=== PATIENT | male | born 1990 | race Caucasian/White ===

== ENCOUNTER 2018-09-04 08:16 | Emergency (ER) | payer OTHER ==
[2018-09-04 08:34] VITALS: BP 133/67
--- NOTE | 2018-09-04 09:16 | ED Physician Documentation ---
PD HPI UPPER EXT INJURY - Stated complaint Stated Complaint: RT ARM PX - Chief complaint Chief Complaint: Ext Problem - History obtained from History obtained from: Patient - History of Present Illness Location: Right, Shoulder Type of injury: Fall Where injury occurred: Home Timing - onset: Last night Timing - duration: Hours (10) Timing - details: Gradual onset Pain level max: 8 Pain level now: 7 Improved by: Rest, Ice, Immobilization Worsened by: Moving, Palpating Associated symptoms: No: Weakness, Numbness, Tingling, Swelling Contributing factors: No: Anticoagulated Similar symptoms before: Has not had sx before Recently seen: Not recently seen - Additonal information Additional information: Patient with right shoulder pain after grabbing a stair railing last night when he was falling. Gradually worsened throughout the night. Increased pain this morning. Neurovascularly intact. Note that his initial oxygen saturation was 97, not 79 Review of Systems Musculoskeletal: denies: Neck pain, Back pain Neurologic: denies: Focal weakness, Numbness, Head injury PD PAST MEDICAL HISTORY - Past Medical History Past Medical History: No - Past Surgical History Past Surgical History: Yes - Present Medications Home Medications: Ambulatory Orders Medication Instructions Recorded Confirmed Cyclobenzaprine [Flexeril] 10 mg PO TID PRN #20 tablet 09/04/18 Ibuprofen [Motrin] 800 mg PO Q8H PRN #30 tablet 09/04/18 - Allergies Allergies/Adverse Reactions: Allergies Allergy/AdvReac Type Severity Reaction Status Date / Time No Known Drug Allergies Allergy Verified 09/04/18 08:27 - Social History Does the pt smoke?: Yes Smoking Status: Current some day smoker Does the pt drink ETOH?: Yes Does the pt have substance abuse?: No PD ED PE NORMAL - Vitals Vital signs reviewed: Yes - General General: Alert and oriented X 3, No acute distress - HEENT HEENT: Moist mucous membranes - Neck Neck: Supple, no meningeal sign - Cardiac Cardiac: RRR - Respiratory Respiratory: No respiratory distress, Clear bilaterally - Derm Derm: Warm and dry - Extremities Extremities: Other (TTP around the glenohumeral joint. NVI. including axillary nerve. Pain worse with AROM than PROM.) - Neuro Neuro: Alert and oriented X 3, No motor deficit, No sensory deficit Results - Vitals Vitals: Vital Signs - 24 hr 09/04/18 09/04/18 08:19 08:50 Temperature 36.5 C Heart Rate 77 Respiratory 15 Rate Blood Pressure 133/67 H O2 Saturation 79 L 97 Oxygen O2 Source Room air - Rads (name of study) R shoulder xray Radiology: Prelim report reviewed, EMP read contemporaneously, See rad report (Normal shoulder radiography. ) PD MEDICAL DECISION MAKING - ED course Complexity details: reviewed results, re-evaluated patient, considered differential, d/w patient ED course: 27-year-old male with right shoulder strain. Placed in a sling for comfort. Given Motrin and Flexeril for home. Patient counseled regarding signs and symptoms for which I believe and urgent re-evaluation would be necessary. Patient with good understanding of and agreement to plan and is comfortable going home at this time This document was made in part using voice recognition software. While efforts are made to proofread this document, sound alike and grammatical errors may occur. Departure - Departure Disposition: Home, Self Care Clinical Impression: Right shoulder strain Qualifiers: Encounter type: initial encounter Qualified Code(s): S46.911A - Strain of unspecified muscle, fascia and tendon at shoulder and upper arm level, right arm, initial encounter Condition: Good Instructions: ED Sprain Shoulder Follow-Up: FARRAH FREY [Primary Care Provider] - Within 1 week Prescriptions: Cyclobenzaprine [Flexeril] 10 mg PO TID PRN #20 tablet PRN Reason: Spasms Ibuprofen [Motrin] 800 mg PO Q8H PRN #30 tablet PRN Reason: PAIN &/OR FEVER Comments: Wear the sling for the next 2 to 3 days. Return if you worsen. Your x-rays are normal. Your rotator cuff will need to be reexamined after the swelling has decreased. Do not drive or operate heavy machinery while taking the Flexeril.
--- NOTE | 2018-09-04 09:19 | XRAY Report ---
Reason: fall, R shoulder pain Procedure Date: 09/04/2018 Accession Number: [id number] / [id number] Procedure: XR - Shoulder 3 View RT CPT Code: FULL RESULT: EXAM: RIGHT SHOULDER RADIOGRAPHY EXAM DATE: 09/04/2018 09:07 AM. CLINICAL HISTORY: Fall, right shoulder pain. COMPARISON: None. TECHNIQUE: 3 views. FINDINGS: Bones: Normal. No fracture or bone lesion. Joints: The glenohumeral and acromioclavicular joints are normal. Soft tissues: The visualized hemithorax is unremarkable. No soft tissue swelling. IMPRESSION: Normal shoulder radiography. [facility]
== END 2018-09-04 10:05 | disposition home or self-care (01) ==
LOC: ED 08:16
DX: S46.911A Strain of unspecified muscle, fascia and tendon at shoulder and upper arm level, right arm, initial encounter (principal); W10.9XXA Fall (on) (from) unspecified stairs and steps, initial encounter; Y92.009 Unspecified place in unspecified non-institutional (private) residence as the place of occurrence of the external cause; F17.200 Nicotine dependence, unspecified, uncomplicated
CPT/HCPCS: 99283

== ENCOUNTER 2020-08-23 13:31 | Emergency (ER) | payer OTHER ==
[2020-08-23 13:45] VITALS: BP 132/91
[2020-08-23] MEDS ORDERED: MECLIZINE 12.5 MG TABLET PO STA (14:46)
[2020-08-23] MEDS ORDERED: ONDANSETRON ODT 4 MG TABLET TL STA (14:46)
--- NOTE | 2020-08-23 14:50 | ED Physician Documentation ---
History of Present Illness - Stated complaint Stated Complaint: HEADACHE - Chief complaint Chief Complaint: Neuro - History obtained from History obtained from: Patient - History of Present Illness Timing: Today Pain level max: 5 Pain level now: 0 - Additonal information Additional information: 29-year-old male states he has been on Wellbutrin 150 mg for the past year. States 2 weeks ago increased to 300 mg daily. He states that today he developed a mild headache had ringing in his ears and felt off balance. He states that his mouth feels dry as well. Nothing makes it better or worse. Did have emesis 5-6 times this morning. Nonbloody. No recent travel. No recent antibiotics. No fevers. No chills. No cough. Review of Systems Constitutional: denies: Fever, Chills Cardiac: denies: Chest pain / pressure Respiratory: denies: Cough GI: reports: Nausea, Vomiting. denies: Constipation, Diarrhea, Hematemesis, Bloody / black stool : denies: Dysuria Skin: denies: Rash Musculoskeletal: denies: Neck pain, Back pain Neurologic: denies: Headache PD PAST MEDICAL HISTORY - Past Medical History Past Medical History: Yes Psych: Depression, Anxiety - Past Surgical History Past Surgical History: Yes - Present Medications Home Medications: Ambulatory Orders Medication Instructions Recorded Confirmed Bupropion HCl [Wellbutrin Xl] 300 mg PO DAILY 08/23/20 08/23/20 Ondansetron Odt [Zofran] 4 mg TL Q6H PRN #10 tablet 08/23/20 buPROPion [Wellbutrin Xl] 150 mg PO DAILY #14 tablet 08/23/20 - Allergies Allergies/Adverse Reactions: Allergies Allergy/AdvReac Type Severity Reaction Status Date / Time No Known Drug Allergies Allergy Verified 08/23/20 13:40 - Social History Does the pt smoke?: Yes Smoking Status: Current every day smoker Does the pt drink ETOH?: Yes Does the pt have substance abuse?: No PD ED PE NORMAL - Vitals Vital signs reviewed: Yes - General General: Alert and oriented X 3, No acute distress - HEENT HEENT: PERRL, EOMI, Ears normal, Moist mucous membranes, Pharynx benign - Neck Neck: Supple, no meningeal sign, No bony TTP - Cardiac Cardiac: RRR - Respiratory Respiratory: No respiratory distress, Clear bilaterally - Abdomen Abdomen: Soft, Non tender, Non distended - Back Back: No spinal TTP - Derm Derm: Warm and dry - Extremities Extremities: No edema, No calf tenderness / cord - Neuro Neuro: Alert and oriented X 3, 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 Tolerating p.o. without difficulty. No nystagmus. Negative Hallpike. This appears to be likely medication side effect. We will decrease his dose back down to 150 mg by mouth daily. We will have him follow-up with his doctor for further care. Patient counseled regarding signs and symptoms for which I believe and urgent re-evaluation would be necessary. Patient with good understanding of and agreement to plan and is comfortable going home at this time This document was made in part using voice recognition software. While efforts are made to proofread this document, sound alike and grammatical errors may occur. Departure - Departure Disposition: 01 Home, Self Care Clinical Impression: Medication side effect Vomiting Qualifiers: Vomiting type: unspecified Vomiting Intractability: non-intractable Nausea presence: with nausea Qualified Code(s): R11.2 - Nausea with vomiting, unspecified Condition: Good Instructions: ED Nausea Vomiting Follow-Up: LAWANDA SANDOVAL MD [Primary Care Provider] - Prescriptions: buPROPion [Wellbutrin Xl] 150 mg PO DAILY #14 tablet Ondansetron Odt [Zofran] 4 mg TL Q6H PRN #10 tablet PRN Reason: Nausea / Vomiting Comments: This is likely a side effect from your Wellbutrin. Would recommend decreasing the Wellbutrin back down to 150 mg daily. Follow-up with your doctor for further care. Return if you worsen. Discharge Date/Time: 08/23/20 15:30
== END 2020-08-23 15:30 | disposition home or self-care (01) ==
LOC: ED 13:31
DX: R11.2 Nausea with vomiting, unspecified (principal); R51.9 Headache, unspecified; H93.13 Tinnitus, bilateral; T43.295A Adverse effect of other antidepressants, initial encounter; F17.200 Nicotine dependence, unspecified, uncomplicated
CPT/HCPCS: 99282; 99284; A9270; Q0162